=== PATIENT | male | born 1975 | race Caucasian/White ===

== ENCOUNTER 2025-04-23 17:02 | Emergency (ER) | payer OTHER ==
[2025-04-23] MEDS: Diltiazem 25 MG/5 ML SDV IVPUSH ONE (17:09)
[2025-04-23] MEDS: Diltiazem 125 MG in Sodium Chloride 0.9% 100 ML IV SCH (17:11)
[2025-04-23] MEDS: Sodium Chloride 0.9% 1,000 ML IV SCH (17:13)
[2025-04-23 17:51] LABS: BASOPHILS ABSOLUTE AUTO 0.1 K/mm3 (0.0-0.2); BASOPHILS PERCENT AUTO 0.9 % (0.0-1.0); EOSINOPHILS ABSOLUTE AUTO 0.2 K/mm3 (0.0-0.4); EOSINOPHILS PERCENT AUTO 1.7 % (0.0-6.0); HEMATOCRIT 40.3 % (42.0-52.0); IMMATURE GRAN ABSOLUTE AUTO 0.07 K/mm3 (0.00-0.05); IMMATURE GRAN PERCENT AUTO 0.5 % (0.0-0.4); LYMPHOCYTES ABSOLUTE AUTO 4.9 K/mm3 (1.0-4.8); LYMPHOCYTES PERCENT AUTO 35.5 % (24.0-44.0); MEAN CORPUSCULAR HEMOGLOBIN 30.3 pg (28.0-32.0); MEAN CORPUSCULAR HGB CONC 34.7 g/dl (32.0-36.0); MEAN CORPUSCULAR VOLUME 87.2 fl (83.0-99.0); MEAN PLATELET VOLUME 10.6 fl (9.4-12.4); MONOCYTES ABSOLUTE AUTO 1.2 K/mm3 (0.0-0.8); MONOCYTES PERCENT AUTO 8.9 % (0.0-8.0); NEUTROPHILS ABSOLUTE AUTO 7.3 K/mm3 (1.8-7.7); NEUTROPHILS PERCENT AUTO 52.5 % (41.0-71.0); PLATELET COUNT,PLT 337 K/mm3 (150-400); RED BLOOD CELL COUNT 4.62 M/mm3 (4.52-5.90); WHITE BLOOD CELL COUNT,WBC 13.85 K/mm3 (3.9-11.3)
[2025-04-23 18:10] LABS: A/G RATIO 1.2 (1-2); ALBUMIN 3.9 g/dl (3.4-5.0); ANION GAP 19.6 (5-15); BILIRUBIN TOTAL 0.5 mg/dL (0.2-1.0); BUN/CREATININE RATIO 10.7 (14-18); CALCIUM 10.5 mg/dL (8.5-10.1); CREATININE 1.4 mg/dL (0.7-1.3); EST CRCL DRUG DOSING (CG) 59.67 mL/min; MAGNESIUM 1.4 mg/dL (1.8-2.4); POTASSIUM,K 3.6 mEq/L (3.5-5.1); PROTEIN TOTAL,TP 7.2 g/dl (6.4-8.2)
[2025-04-23 18:34] LABS: TSH 5.589 uIU/mL (0.358-3.74)
[2025-04-23 18:37] LABS: T4 FREE 1.01 ng/dL (0.76-1.46)
[2025-04-23] MEDS: Sodium Chloride 0.9% 1,000 ML IV ONE (18:45)
[2025-04-23] MEDS: methylPREDNISolone Sodium Succinate 125 MG/2 ML SDV IVPUSH ONE (18:45)
[2025-04-23] MEDS: DILTIAZEM IV ONE (18:52)
[2025-04-23] MEDS: WATER IV ONE (18:52)
[2025-04-23] MEDS: DEXTROSE IV ONE (18:52)
[2025-04-23] MEDS: Diltiazem 25 MG/5 ML SDV ONE (18:53)
[2025-04-24] MEDS: Adenosine 12 MG/4 ML SDV ONE (10:00)
== END 2025-04-23 20:26 | disposition home or self-care (01) ==
LOC: JD.ED 17:02
DX: J44.1 Chronic obstructive pulmonary disease with (acute) exacerbation (principal); E86.0 Dehydration; E83.42 Hypomagnesemia; E78.00 Pure hypercholesterolemia, unspecified; Z79.899 Other long term (current) drug therapy; Z91.018 Allergy to other foods
CPT/HCPCS: 36415; 71045; 80053; 83735; 84439; 84443; 84484; 85025; 93005; 96361; 96365; 96366; 96375; 96376; 99285; J2919; J3490; J7030; 93010; 99284

== ENCOUNTER 2025-07-29 16:33 | Emergency (ER) | payer OTHER | END 2025-07-29 21:00 | disposition home or self-care (01) | LOC: JD.ED 16:33 | DX: I80.01 Phlebitis and thrombophlebitis of superficial vessels of right lower extremity (principal); E78.00 Pure hypercholesterolemia, unspecified; Z91.018 Allergy to other foods; Z79.899 Other long term (current) drug therapy | CPT/HCPCS: 93971-26-RT; 93971-RT; 99283 ==